=== PATIENT | male | born 1945 | race Hispanic/Latino ===

== ENCOUNTER 2017-02-09 06:59 | Inpatient (IN) | payer MEDICARE, OTHER ==
[2017-02-09] MEDS ORDERED: ceFAZolin 2 GM in NACL 0.9% 100 ML IV ONE (07:46)
[2017-02-09 08:01] LABS: Basophils % (Auto) 1.3 % (0.0-1.8); Eosinophils % (Auto) 8.8 % (0.0-4.3); Hematocrit 35.6 % (35.5-45.6); Hemoglobin 11.5 gm/dl (11.8-15.2); Mean Corpuscular HGB Conc 32 % (32-34); Mean Corpuscular Hemoglobin 29 pg (28-32); Mean Corpuscular Volume 89 fl (84-94); Platelet Count 179 K/mm3 (140-440); Red Blood Count 4.01 M/mm3 (3.65-5.03); Red Cell Distribution Width 15.3 % (13.2-15.2); White Blood Count 5.1 K/mm3 (4.5-11.0)
[2017-02-09 08:11] LABS: INR 1.2 (0.87-1.13)
[2017-02-09 08:12] LABS: Partial Thromboplastin Time 31.6 Sec. (24.2-36.6)
[2017-02-09 08:13] LABS: Anion Gap 14 mmol/L; Blood Urea Nitrogen 18 mg/dL (9-20); Calcium 9.8 mg/dL (8.4-10.2); Carbon Dioxide 23 mmol/L (22-30); Chloride 103.8 mmol/L (98-107); Glucose 96 mg/dL (75-100); Potassium 4.6 mmol/L (3.6-5.0); Sodium 136 mmol/L (137-145)
[2017-02-09] MEDS ORDERED: NACL 0.9% 1000 ML 1,000 ML IV ONE (08:56)
[2017-02-09] MEDS ORDERED: NACL 0.9% 1000 ML 1,000 ML ONE ×3 (08:58→18:47)
[2017-02-09] MEDS ORDERED: ANCEF/STERILE WATER 2 GM/20 ML 2 GM/20 ML SYRINGE IV NR (09:30)
[2017-02-09] MEDS ORDERED: HEPARIN/NS 5000 UNIT/500ML(CATH LAB) 1,000 ML IR ONE (09:31)
[2017-02-09] MEDS ORDERED: XYLOCAINE 2% INFILTRATI ONE (09:33)
[2017-02-09] MEDS ORDERED: ANCEF/STERILE WATER 2 GM/20 ML 2 GM/20 ML SYRINGE IV ONE (09:33)
[2017-02-09] MEDS ORDERED: WATER FOR INJ (PF) 10 ML ONE ×4 (09:33→12:09)
[2017-02-09] MEDS ORDERED: XYLOCAINE 1%/ EPI 1:100,000 INFILTRATI ONE (09:36)
[2017-02-09] MEDS ORDERED: CATHFLO ONE ×3 (09:49→12:08)
[2017-02-09] MEDS: SUBLIMAZE ONE ×8 (09:51→12:48)
[2017-02-09] MEDS: VERSED ONE ×8 (09:51→12:47)
[2017-02-09] MEDS: HEPARIN 10,000 UNITS/10 ML ONE ×5 (10:10→12:49)
[2017-02-09] MEDS ORDERED: HEPARIN/NS 5000 UNIT/500ML(CATH LAB) 500 ML IR ONE ×2 (10:33→10:39)
[2017-02-09] MEDS ORDERED: NACL 0.9% 50 ML ONE (10:40)
[2017-02-09] MEDS ORDERED: BENADRYL ONE (13:00)
[2017-02-09] MEDS ORDERED: ELIQUIS ONE (13:13)
--- NOTE | 2017-02-09 13:22 | Short Stay Summary ---
Short Stay Documentation Date of service: 02/09/17 - History H&P: obtained from office - Allergies and Medications Current Medications: Allergies aspirin Allergy (Verified 04/08/13 06:43) Rash Home Medications Medication Instructions Recorded Confirmed Last Taken Type Albuterol Sulfate [Ventolin HFA] 2 puff IH Q4H PRN 04/01/13 02/09/17 12/09/16 History 2 puff Simvastatin 20 mg PO QHS 04/01/13 02/09/17 02/09/17 06:00 History Tamsulosin [Flomax] 0.4 mg PO HS 04/01/13 02/09/17 02/08/17 History 0.4mg Valsartan [Diovan] 40 mg PO DAILY 04/01/13 02/09/17 02/09/17 06:00 History 40mg Active Medications Sodium Chloride (Nacl 0.9% 1000 Ml) 1,000 mls @ 42 mls/hr IV ONCE ONE Stop: 02/10/17 08:44 Last Admin: 02/09/17 09:16 Dose: 42 mls/hr - Physical exam General appearance: no acute distress Lungs: Normal air movement Extremities: pulses intact, normal temperature, normal color, abnormal (2-3+ RLE edema with mild to moderate tightness in the right calf) - Brief post op/procedure progress note Date of procedure: 02/09/17 Pre-op diagnosis: Ileofemoral DVT Post-op diagnosis: same Procedure: DVT thrombectomy, IVC filter, angioplasty, stenting Anesthesia: local Surgeon: ALTHEA PIERSON Estimated blood loss: other (150 mL) Condition: stable - Hospital course Hospital course: Tolerated procedure well. Vitals signs stable with orthostatic pressure. Walking without issue. Tolerating IV fluids without issue. Explained the importance of PO intake of food and liquids/water. - Disposition Condition at discharge: Stable Disposition: [id number] TO HOME OR SELFCARE - Discharge Diagnoses (1) Ileofemoral deep vein thrombosis Status: Acute Qualifiers: Laterality: L Short Stay Discharge Plan Activity: advance as tolerated Weight Bearing Status: Weight Bear as Tolerated Diet: regular Wound: keep clean and dry, other (take pressure dressing off tomorrow ; take medications as instructed) Additional Instructions: Remove Dressing from neck tomorrow .Call Dr Pierson for any temp greater than 100, redness . For any breathing problem , swelling or chest pain call 911. Prescriptions: Apixaban [Eliquis] 10 mg PO BID #14 tablet Apixaban [Eliquis] 5 mg PO BID #60 tablet HYDROcodone/APAP 5-325 [[place] 5/325] 1 - 2 each PO Q6HR PRN #60 tablet PRN Reason: Pain Ondansetron [Zofran Odt] 4 mg PO Q6HR PRN #20 tab.rapdis PRN Reason: Nausea And Vomiting
--- NOTE | 2017-02-09 13:38 | Operative Report ---
Operative Report Operative Report: EXAM: 1. Ultrasound-guided access of the right internal jugular vein 2. Selection of the inferior vena cava 3. Fluoroscopic-guided placement of an infrarenal Charity retrievable IVC filter 4. Selection of the right common iliac vein, external iliac vein, common femoral vein, and angiography of the right lower extremity 5. Selection of the right profundofemoral vein, right greater saphenous vein, right second duplicated superficial femoral vein and popliteal vein with angiography 6. Selection of the right first duplicated superficial femoral vein and popliteal vein with angiography 7. Infusion of 10 mg of TPA pulse breakthrough the right external iliac vein, common femoral vein, profunda femoral vein, first duplicated superficial femoral vein, duplicated popliteal vein and subsequent mechanical thrombectomy 8. Angioplasty of the right popliteal vein, and first duplicated superficial femoral vein with a 7 mm angioplasty balloon 9. Angioplasty of the right profunda femoral vein, common femoral vein, external iliac vein, and common iliac vein with a 12 mm angioplasty balloon 10. 6 Fr MPA aspiration thrombectomy of the right first duplicated superficial femoral vein and profunda femoral vein 11. Angioplasty of the second duplicated superficial femoral vein and popliteal vein with a 5 mm angioplasty balloon 12. Infusion of 4 mg of TPA in the left popliteal vein and superficial femoral vein 13. Repeat angioplasty of the right external iliac vein with a 12 mm angioplasty balloon 14. Stenting of the right external iliac vein with an 18 mm x 60 mm wall stent with postdilatation with a 12 mm angioplasty balloon and 14 mm angioplasty balloon DATE: 02/09/17 SAIL REPAIR PERSON: ALTHEA PIERSON MD INDICATION: Symptomatic right iliofemoral DVT involving the profundofemoral vein and common femoral vein MEDICATIONS: Please see nursing report for full details. DEVICES: Dillon, retrievable, IVC filter 5 mm x 120 mm angioplasty balloon 7 mm x 200 mm angioplasty balloon 12 mm x 60 mm angioplasty balloon 18 mm x 60 mm wall stent 14 mm angioplasty balloon 8 [place] AngioJet CONTRAST: Please see bed laborer report for full details. PROCEDURE: The risks, benefits, and alternatives were discussed with the patient and his ; written informed consent was obtained. The patient's right neck was prepped and draped in a sterile fashion. The right internal jugular vein was patent on ultrasound. Under direct ultrasound guidance, the right internal jugular vein was accessed with a 21- gauge mitral puncture needle. 0.018 inch wire was passed into the IVC. Needle was exchanged for transitional dilator. Wire was exchanged per 0.035 inch Amplatz wire. Transitional dilator was exchanged for a 5 [place] sheath. Pigtail catheters advanced over the wire and uses select the IVC near the ileocaval junction. Table was locked. Digital subtraction angiography was performed demonstrating a patent IVC. Renal inflow was visualized. The IVC was large enough to accommodate an IVC filter. The proximal most common iliac veins were patent. Pigtail catheter was removed over 0.035 inch Amplatz wire. Sheath was exchanged for an IVC filter deployment sheath and introducer. Introducer was removed. IVC filter deployment device was advanced to the sheath. It was then deployed below the renal veins under direct fluoroscopic guidance. Deployment device was removed and angiography was performed demonstrating patency of the IVC and proper position of the Dillon retrievable IVC filter. Amplatz wire was passed through the sheath and the sheath was exchanged for a 9 [place]ese short sheath. 6 [place]ese 90 cm Girard destination was advanced through the 9 [place] short sheath and used with a Glidewire advantage and an angled catheter to select the right common femoral vein. I then selected the profundafemoral vein. The right common iliac vein and the right external iliac vein were also selected. Digital subtraction angiography was performed demonstrating thrombus in the right profundafemoral vein, common femoral vein, lower external iliac vein, and a severe focal narrowing in the right lower external iliac vein. The right common iliac vein had only mild narrowing associated with it. I attempted to select the superficial femoral vein, but selected the right greater saphenous vein. Digital subtraction angiography was performed throughout its length demonstrating that it was patent. There was collateralization into the superficial femoral vein. Using roadmapping imaging, I then selected the superficial femoral vein. I then selected the popliteal vein. Digital subtraction angiography demonstrated that the superficial femoral vein and the popliteal vein were duplicated and there was a small amount of thrombus within the junction between the popliteal vein and the superficial femoral vein, but the rest of the superficial femoral vein was patent. The popliteal vein had a moderate amount of thrombus within the upper portion of that. I will subsequently refer to the superficial femoral vein and popliteal vein that I just selected that were not completely full of thrombus as the second duplicated system as it was smaller than the other femoral popliteal venous system. Using roadmapping imaging, I then selected the first duplicated superficial femoral vein and popliteal vein. Digital subtraction angiography demonstrated thrombus throughout the popliteal vein and superficial femoral vein of the first duplicated system which was larger than the second. 8 [place] AngioJet was advanced over the wire and used to pulse spray 10 mg of TPA in the right external iliac vein, common femoral vein, profunda femoral vein , first duplicated superficial femoral vein and first duplicated popliteal vein. 25 min dwell time was allowed. Afterwards, mechanical thrombectomy was performed of the right external iliac vein, common femoral vein, profunda femoral vein, first duplicated superficial femoral vein, and first duplicated popliteal vein. Digital subtraction angiography was then performed demonstrating resolution of most of the thrombus with probably 25% residual thrombus within the upper portion of the first duplicated popliteal vein, superficial femoral vein, profunda femoral vein, and common femoral vein. The mid and lower popliteal vein still had thrombus within them as the thrombectomy device could not reach this area. No residual thrombus in the iliac veins. 7 mm angioplasty balloon was advanced over the wire and use perform angioplasty from the first duplicated popliteal vein, first duplicated superficial femoral vein, and into the profundofemoral vein. 12 mm angioplasty balloon was then used to perform angioplasty from the profundofemoral vein into the common femoral vein, external iliac vein, and common iliac vein. Due to the length restrictions with the AngioJet catheter, I could not perform AngioJet thrombectomy into the mid and distal portion of the popliteal vein as the AngioJet was not long enough. Digital subtraction angiography was performed demonstrating thrombus within the mid and distal portions of the first duplicated popliteal vein with prompt flow throughout the rest of the first duplicated superficial femoral vein which only had mild residual narrowing. The superficial femoral vein previously had occlusive thrombus and multifocal moderate narrowing. There was some residual thrombus within the profundofemoral vein and superficial femoral vein which was then treated with aspiration thrombectomy with the 6 [place]ese MPA guide catheter. I then selected the second duplicated superficial femoral vein and popliteal vein and passed a 0.035 inch wire into this popliteal vein digital subtraction angiography in the popliteal vein demonstrated prompt flow, but residual thrombus at the lower portion of the second duplicated superficial femoral vein. 5 mm angioplasty balloon was use perform angioplasty of the lower second duplicated superficial femoral vein. Digital subtraction angiography then demonstrated improved flow into the profundofemoral vein and rest of the superficial femoral vein. I then injected 4 mg of TPA into the popliteal vein as far down as I could in order to attempt to pass TPA into the mid and lower popliteal vein. Pullback angiogram was then performed with the 6 [place]ese sheath which again demonstrated the severe narrowing within the external iliac vein. The rest of the common femoral vein and profundofemoral vein were with minimal thrombus. The right common iliac vein was widely patent. Due to leaking from the 9 [place]ese sheath, the 9 [place]ese sheath then had to be removed and upsized to 11 [place]ese sheath. 8 [place] sheath was then passed coaxially through the 11 [place]ese sheath into the right common femoral vein. Roadmapping imaging was performed. 12 mm angioplasty balloon was used to perform angioplasty of the right external iliac vein at the area of severe narrowing. Digital subtraction angiography was performed demonstrating severe narrowing with immediate recoil from angioplasty. 18 mm x 60 mm wall stent was then successfully deployed in the right external iliac vein. This was post dilated with a 12 mm angioplasty balloon, and then a 14 mm angioplasty balloon. Digital subtraction angiography was performed demonstrating no residual narrowing with excellent flow into the IVC. Digital subtraction angiography was then performed in the IVC demonstrating no thrombus in the IVC filter. All wires, catheters, and she stood with a removed. Pressure was held until hemostasis was achieved. Dermabond applied to the right neck. 10 mg Eliquis provided by mouth. Pressure dressing applied to the right neck. FINDINGS: Please see procedure note above. IMPRESSION: 1. Successful selection of the IVC with placement of an IVC filter 2. Successful selection of the right common iliac vein, external iliac vein, common femoral vein, profunda femoral vein, greater saphenous vein, and first and second duplicated superficial femoral vein and popliteal vein 3. Successful mechanical thrombectomy and TPA pulse infusion in the right external iliac vein, common femoral vein, profunda femoral vein, first duplicated superficial femoral vein and popliteal vein 4. Successful angioplasty of the right common iliac vein, common femoral vein, profunda femoral vein, first and second duplicated superficial femoral vein, and first popliteal vein 5. Successful stenting of the right external iliac vein with an 18 mm x 60 mm wall stent
[2017-02-09] MEDS ORDERED: PERCOCET 5/325 PO ONE (14:57)
[2017-02-09] MEDS ORDERED: PERCOCET 5/325 ONE (15:10)
[2017-02-09] MEDS ORDERED: ZOFRAN ONE ×2 (15:33→18:12)
[2017-02-09] MEDS ORDERED: ZOFRAN IV ONE ×2 (16:33→18:15)
[2017-02-09] MEDS ORDERED: NACL 0.9% 1000 ML 1,000 ML IV SCH ×2 (18:00→19:00)
[2017-02-09] MEDS ORDERED: TRANSDERM-SCOP TD ONE (18:35)
[2017-02-09] MEDS ORDERED: NORCO 5/325 PO PRN (19:00)
[2017-02-09] MEDS ORDERED: DULCOLAX PR PRN (19:00)
[2017-02-09] MEDS ORDERED: TYLENOL PO PRN (19:00)
[2017-02-09] MEDS ORDERED: MILK OF MAGNESIA PO PRN (19:00)
[2017-02-09] MEDS ORDERED: PROAIR IH PRN (19:06)
[2017-02-09] MEDS ORDERED: ATIVAN PO PRN (19:07)
[2017-02-09] MEDS ORDERED: APRESOLINE IV PRN ×2 (19:08→23:42)
[2017-02-09] MEDS ORDERED: PROVENTIL IH PRN (19:30)
[2017-02-09] MEDS ORDERED: FLOMAX PO SCH (22:00)
[2017-02-09] MEDS ORDERED: ZOCOR PO SCH (22:00)
[2017-02-09] MEDS: SENOKOT PO SCH (23:06)
[2017-02-09] MEDS: COLACE PO SCH (23:06)
[2017-02-09] MEDS: ZOFRAN IV PRN (23:07)
--- NOTE | 2017-02-09 23:43 | Consultation ---
History of Present Illness - Reason for Consult Consult date: 02/09/17 htn Requesting physician: ALTHEA PIERSON - History of Present Illness 71-year-old man with a history of hypertension, hyperlipidemia, status post thrombectomy, IVC filter is being consulted for management of his hypertension. Patient stated that he is on Diovan at home and his blood pressures usually controlled, he is compliant with medications. Currently have no complaints, pain is controlled Constitutional: no fever, no chills, no weight loss Ears, eyes, nose, mouth and throat: no nasal congestion, no nasal discharge, no sinus pressure, no vision change, no red eye. Neck: No neck pain or rigidity. Cardiovascular: chest pain, no orthopnea, no palpitations, no leg swelling Respiratory: No shortness of breath, no cough, no congestion, no wheezing Gastrointestinal: abdominal pain, hematochezia, no nausea, no vomiting Genitourinary : no dysuria, frequency , no hematuria Musculoskeletal: no joint swelling or muscle ache Integumentary: no rash, no pruritis Neurological: no parathesias, no numbness, no focal weakness Endocrine: no cold or heat intolerance, no polyuria or polydipsia Hematologic/Lymphatic: no easy bruising, no easy bleeding, no gland swelling Allergic/Immunologic: no urticaria, no angioedema. PAST MEDICAL HISTORY:hypertension, hyperlipidemia PAST SURGICAL HISTORY: IVC filter FAMILY HISTORY: Hypertension SOCIAL HISTORY: Denies alcohol, tobacco, drugs Medications and Allergies Allergies Allergy/AdvReac Type Severity Reaction Status Date / Time aspirin Allergy Rash Verified 04/08/13 06:43 Home Medications Medication Instructions Recorded Confirmed Last Taken Type Albuterol Sulfate [Ventolin HFA] 2 puff IH Q4H PRN 04/01/13 02/09/17 12/09/16 History 2 puff Simvastatin 20 mg PO QHS 04/01/13 02/09/17 02/09/17 06:00 History Tamsulosin [Flomax] 0.4 mg PO HS 04/01/13 02/09/17 02/08/17 History 0.4mg Valsartan [Diovan] 40 mg PO DAILY 04/01/13 02/09/17 02/09/17 06:00 History 40mg Apixaban [Eliquis] 5 mg PO BID #60 tablet 02/09/17 Unknown Rx Apixaban [Eliquis] 10 mg PO BID #14 tablet 02/09/17 Unknown Rx HYDROcodone/APAP 5-325 [[place] 1 - 2 each PO Q6HR PRN #60 tablet 02/09/17 Unknown Rx 5/325] Ondansetron [Zofran Odt] 4 mg PO Q6HR PRN #20 tab.rapdis 02/09/17 Unknown Rx Active Meds: Active Medications Acetaminophen (Tylenol) 650 mg PO Q4H PRN PRN Reason: Pain MILD(1-3)/Fever >100.5/[place] Acetaminophen/Hydrocodone Bitart ([place] 5/325) 2 each PO Q6H PRN PRN Reason: Pain, Moderate (4-6) Albuterol (Proventil) 2.5 mg IH Q4HRT PRN PRN Reason: Shortness Of Breath Apixaban (Eliquis) 10 mg PO Q12HR PINA PRN Reason: Protocol Stop: 02/16/17 10:01 Bisacodyl (Dulcolax) 10 mg MS QDAY PRN PRN Reason: Constipation unrelieved by MOM Docusate Sodium (Colace) 100 mg PO BID [facility] Last Admin: 02/09/17 23:06 Dose: 100 mg Hydralazine HCl (Apresoline) 10 mg IV Q4HR PRN PRN Reason: Hypertension Sodium Chloride (Nacl 0.9% 1000 Ml) 1,000 mls @ 150 mls/hr IV DIRECT PINA Lorazepam (Ativan) 1 mg PO QHS PRN PRN Reason: Sleep Magnesium Hydroxide (Milk Of Magnesia) 30 ml PO Q4H PRN PRN Reason: Constipation Ondansetron HCl (Zofran) 4 mg IV Q4H PRN PRN Reason: Nausea Last Admin: 02/09/17 23:07 Dose: 4 mg Senna (Senokot) 8.6 mg PO Q12HR [facility] Last Admin: 02/09/17 23:06 Dose: 8.6 mg Simvastatin (Zocor) 20 mg PO QHS [facility] Last Admin: 02/09/17 23:07 Dose: 20 mg Tamsulosin HCl (Flomax) 0.4 mg PO HS [facility] Last Admin: 02/09/17 23:06 Dose: 0.4 mg Valsartan (Diovan) 40 mg PO DAILY [facility] Exam - Physical Exam Narrative exam: Gen. appearance: Patient lying in bed, no apparent distress HEENT: Normocephalic, atraumatic, pupils equally round and reactive to light, extraocular movement intact, and no sclericterus,. No JVD or thyromegaly or nodule,neck supple, no carotid bruit ,mucous membranes moist, no exudate or erythema Heart: S1, S2, regular rate and rhythm Lungs: Clear to auscultation bilaterally, breathing comfortable Abdomen: Positive bowel sounds, nontender, nondistended, no organomegaly Extremity: No edema, cyanosis, clubbing Skin: No rash, nodules, warm, dry Neuro: Oriented 3, cranial nerves II-12 intact, speech is fluent, motor and sensory intact - Constitutional Vitals: Temp Pulse Resp BP Pulse Ox 98.5 F 50 L 20 144/85 94 02/09/17 23:05 02/09/17 23:05 02/09/17 23:05 02/09/17 23:05 02/09/17 23:05 Results - Labs CBC & Chem 7: 02/09/17 07:55 02/09/17 07:55 Labs: Abnormal lab results 02/09/17 02/09/17 02/09/17 Range/Units 07:55 07:55 07:55 Hgb 11.5 L (11.8-15.2) gm/dl RDW 15.3 H (13.2-15.2) % Cole % (Auto) 9.1 H (0.0-7.3) % Eos % (Auto) 8.8 H (0.0-4.3) % PT 15.1 H (12.2-14.9) Sec. INR 1.20 H (0.87-1.13) Sodium 136 L (137-145) mmol/L Assessment and Plan Hypertension Patient was restarted on his outpatient medication, IV hydralazine is also written as needed Agree with these medications, will follow
[2017-02-10] MEDS: ELIQUIS PO SCH ×2 (01:22→10:06)
[2017-02-10] MEDS: NACL 0.9% 1000 ML 1,000 ML IV SCH ×2 (01:28→07:55)
[2017-02-10 06:51] LABS: Basophils % (Auto) 0.5 % (0.0-1.8); Eosinophils % (Auto) 1.3 % (0.0-4.3); Hematocrit 31.2 % (35.5-45.6); Hemoglobin 10.4 gm/dl (11.8-15.2); Mean Corpuscular HGB Conc 33 % (32-34); Mean Corpuscular Hemoglobin 29 pg (28-32); Mean Corpuscular Volume 87 fl (84-94); Platelet Count 142 K/mm3 (140-440); Red Cell Distribution Width 15.3 % (13.2-15.2); White Blood Count 7.1 K/mm3 (4.5-11.0)
[2017-02-10 07:03] LABS: BUN/Creatinine Ratio 18.46; Calcium 9.7 mg/dL (8.4-10.2); Chloride 108.9 mmol/L (98-107); Potassium 5.3 mmol/L (3.6-5.0)
--- NOTE | 2017-02-10 08:34 | Admit Criteria Form ---
Admission Criteria Documentation: AMBULATORY SURGERY EXCEPTION CRITERIA Ambulatory Surgery Exception Criteria ( Place 'X' for any and all applicable criteria): Surgery or procedure performed on ambulatory basis may require inpatient stay for[A] ANY ONE of the following(1)(2)(3)(4)(5)(6)(7)(8)(9): [] I. A preoperative situation, condition, or finding that warrants inpatient stay as indicated by ANY ONE of the following: [] a) Inpatient care needed because of severity of a disease or condition rather than the surgery (eg, severe cardiac or respiratory disease, severe infection) (15) (16 ) (17) (18) [] b) Emergent procedure (eg, angioplasty for acute ischemia)(19) [] c) Complex surgical approach or situation as indicated by ANY ONE of the following(3): [] i) Open approach needed instead of usual endoscopic, transcatheter, or other less invasive procedure [] ii) Difficult approach because of previous operation [] iii) Airway monitoring required after open neck procedures(20)(21) [] iv) Large mass requiring unusually extensive dissection [] v) Additional complicating feature requiring inpatient care (eg, drain management)(22(23): [] d) Major surgery in a pt with high anesthetic risk as indicated by ANY ONE of the following (2)(3)(5)(7)(8): [] i) ASA risk class III or higher (severe systemic disease impairing function) [D] [] ii) Advanced age (eg, older than 85 years)(14)(24) [] iii) Symptomatic heart failure(25) [] iv) Symptomatic asthma or COPD(8)(21) [] v) Morbid obesity with hemodynamic or respiratory problems(20)( 21)(26)(27) [] vi) Obstructive sleep apnea(20)(21) [] vii) Former premature infants who are younger than 60 weeks [] viii) High risk for severe postoperative abnormalities (eg, severe postoperative hypocalcemia after parathyroidectomy for severe hyperparathyroidism)(27)( 28) [] ix) Unstable angina(25) [] e) Drug-related risk requiring inpatient stay as indicated by ANY ONE of the following(5)(10)(14)(32)(33) [] i) Procedure requires discontinuing drugs or other therapy (eg , antiarrhythmic medication, antiseizure medication), which necessitates inpatient observation or treatment.(18)(31) [] ii) Major surgery and high risk drug use as indicated by ANY ONE of the following: [] 1) Active abuse of cocaine or similar drug [] 2) Monoamine oxidase inhibitor use [] 3) Other drug identified as posing risk [] f) Inadequate outpatient care situation as indicated by ANY ONE of the following(5)(10)(14)(32)(33) [] i) Patient lives remote from medical facility and procedure has urgent complication potential, and temporary nearby residence cannot be arranged [] ii) Patient will have postprocedure incapacitation and inadequate assistance at home, or alternative level of care cannot be arranged. [] iii) Patient will have long general anesthesia or procedure side effect resolution time, and competent person to stay with patient on first postoperative night at home or alternative level of care cannot be arranged. []iv) Other inadequate outpatient situation that cannot be handled by other means [X] II. A perioperative event, condition, or finding that warrants inpatient stay as indicated by ANY ONE of the following (1)(2)(3): [] a) Inadequate physiologic recovery: cardiovascular, respiratory, or hemodynamic status not normal or near preoperative baseline(18) [] b) Hemodynamic instability [] c) Patient not alert with near normal or baseline mental status [] d) Temperature not normal or as expected and not appropriate for outpatient treatment of condition [] e) Ambulatory or appropriate activity level status not yet achieved post procedure [E](34)(35)(36) [] f) Operative site not appropriate (eg, unexpected or excessive drainage or bleeding) [X] g) Postoperative effects not resolved or adequately managed (eg, significant pain or vomiting not appropriate for outpatient or next level of care)(10)(12) [] h) Complicating features requiring inpatient care as indicated by ANY ONE of the following(37): [] i) Severe complications of procedure (eg, bowel injury, airway compromise, vascular injury,severe hemorrhage) [] ii) Extensive (eg, dissection far beyond usual scope of procedure ) or prolonged (eg, 120 minutes beyond usual) surgery needed requiring inpatient postoperative care [] iii) Conversion to an open or complex procedure that requires inpatient care (eg, open vs laparoscopic cholecystectomy, abdominal vs vaginal hysterectomy)(38) [] iv) Comorbid condition or test result identified during or post procedure that requires inpatient care (7) [] v) Malignant hyperthermia(30) [] vi) Other complicating feature requiring inpatient care(22)(23) Inpatient stay may be needed until ALL of the following are present (1)(2)(3)(4) (5)(6)(10)(14)(33)(40): []a) Physiologic recovery: cardiovascular, respiratory, and hemodynamic status normal or near preoperative baseline []b) Hemodynamic stability []c) Patient alert, with near normal or baseline mental status []d) Temperature appropriate: patient afebrile or temperature appropriate for outpt treatment of condition []e) Activity level appropriate: ambulatory or appropriate activity level post procedure []f) Operative site appropriate as indicated by ALL of the following: []i) Site dry or with expected drainage []ii) Any blood noted is as expected for procedure. []g) Postoperative effects resolved or managed as indicated by ALL of the following: []i) Pain management appropriate for outpatient (or next level of) care(10) []ii) Minimal nausea and vomiting: if present, successfully treated with oral medication(12) []iii) Headache, dizziness, or drowsiness (if present) are mild. []h) Voiding status acceptable as indicated by ANY ONE of the following: []i) Voiding spontaneously []ii) No voiding but instructions given for follow-up in 6 to 8 hours []iii) Urinary catheter in place, and instructions given for follow-up []i) Complicating features requiring inpatient care manageable at a lower level of care(37) []j) Comorbid conditions manageable at a lower level of care(37) The original [employer] content created by [employer] has been revised. The portions of the content which have been revised are identified through the use of italic text or in bold, and [email or web address] has neither reviewed nor approved the modified material. All other unmodified content is copyright [employer]. Please see references footnoted in the original [employer] edition 2016 Admission Criteria Met: Yes
[2017-02-10 09:51] VITALS: BP 111/59
[2017-02-10] MEDS ORDERED: DIOVAN PO SCH (10:00)
[2017-02-10] MEDS: ZOFRAN IV PRN (10:03)
[2017-02-10] MEDS: SENOKOT PO SCH (10:06)
[2017-02-10] MEDS: COLACE PO SCH (10:06)
[2017-02-10 10:20] LABS: BUN/Creatinine Ratio 16.42; Calcium 9.6 mg/dL (8.4-10.2); Potassium 5.1 mmol/L (3.6-5.0)
--- NOTE | 2017-02-10 11:43 | Progress Note ---
Assessment and Plan Pt doing well post-op. Am lab work showed elevated K. Discussed with Hospitalist. He will order a dose of Kayexalate. Will d/c home later today, pt will need to f/u with PCP next week. - Patient Problems (1) Ileofemoral deep vein thrombosis Current Visit: Yes Status: Acute Qualifiers: Laterality: L Subjective Date of service: 02/10/17 Interval history: Pt awake and alert without complaint this am. Objective - Constitutional Vitals: Vital Signs - 12hr 02/10/17 02/10/17 03:05 08:30 Temperature 98.4 F 97.8 F Pulse Rate 50 L 49 L Respiratory 20 20 Rate Blood Pressure 138/68 111/59 O2 Sat by Pulse 94 95 Oximetry General appearance: Present: no acute distress - EENT Eyes: EOM intact ENT: hearing intact - Neck Neck: supple, other (bruising at the base of the right neck following access. Incsision intact without erythema or drainage) - Respiratory Respiratory effort: normal Extremities: no ischemia - Neurologic Neurologic: no focal deficits - Psychiatric Psychiatric: appropriate mood/affect, intact judgment & insight, cooperative - Labs CBC & Chem 7: 02/10/17 05:58 02/10/17 09:52 Labs: Abnormal lab results 02/10/17 02/10/17 02/10/17 Range/Units 05:58 05:58 09:52 RBC 3.60 L (3.65-5.03) M/mm3 Hgb 10.4 L (11.8-15.2) gm/dl Hct 31.2 L (35.5-45.6) % RDW 15.3 H (13.2-15.2) % [place] % (Auto) 11.2 H (0.0-7.3) % Seg Neutrophils % 70.6 H (40.0-70.0) % Potassium 5.3 H 5.1 H (3.6-5.0) mmol/L Chloride 108.9 H 109.0 H (98-107) mmol/L Carbon Dioxide 20 L 20 L (22-30) mmol/L BUN 24 H 23 H (9-20) mg/dL Glucose 104 H 111 H (75-100) mg/dL
--- NOTE | 2017-02-10 12:03 | Short Stay Summary ---
Short Stay Documentation Date of service: 02/10/17 - History H&P: obtained from office - Allergies and Medications Current Medications: Allergies aspirin Allergy (Verified 04/08/13 06:43) Rash Home Medications Medication Instructions Recorded Confirmed Last Taken Type Albuterol Sulfate [Ventolin HFA] 2 puff IH Q4H PRN 04/01/13 02/09/17 12/09/16 History 2 puff Simvastatin 20 mg PO QHS 04/01/13 02/09/17 02/09/17 06:00 History Tamsulosin [Flomax] 0.4 mg PO HS 04/01/13 02/09/17 02/08/17 History 0.4mg Valsartan [Diovan] 40 mg PO DAILY 04/01/13 02/09/17 02/09/17 06:00 History 40mg Apixaban [Eliquis] 5 mg PO BID #60 tablet 02/09/17 Unknown Rx Apixaban [Eliquis] 10 mg PO BID #14 tablet 02/09/17 Unknown Rx HYDROcodone/APAP 5-325 [[place] 1 - 2 each PO Q6HR PRN #60 tablet 02/09/17 Unknown Rx 5/325] Ondansetron [Zofran Odt] 4 mg PO Q6HR PRN #20 tab.rapdis 02/09/17 Unknown Rx Active Medications Acetaminophen (Tylenol) 650 mg PO Q4H PRN PRN Reason: Pain MILD(1-3)/Fever >100.5/[place]D Acetaminophen/Hydrocodone Bitart ([place] 5/325) 2 each PO Q6H PRN PRN Reason: Pain, Moderate (4-6) Albuterol (Proventil) 2.5 mg IH Q4HRT PRN PRN Reason: Shortness Of Breath Apixaban (Eliquis) 10 mg PO Q12HR PINA PRN Reason: Protocol Stop: 02/16/17 10:01 Last Admin: 02/10/17 10:06 Dose: 10 mg Apixaban (Eliquis) 5 mg PO Q12HR PINA PRN Reason: Protocol Bisacodyl (Dulcolax) 10 mg WA QDAY PRN PRN Reason: Constipation unrelieved by MOM Docusate Sodium (Colace) 100 mg PO BID [facility] Last Admin: 02/10/17 10:06 Dose: 100 mg Hydralazine HCl (Apresoline) 5 mg IV Q6HR PRN PRN Reason: Hypertension Sodium Chloride (Nacl 0.9% 1000 Ml) 1,000 mls @ 150 mls/hr IV DIRECT [facility] Last Admin: 02/10/17 07:55 Dose: 150 mls/hr Lorazepam (Ativan) 1 mg PO QHS PRN PRN Reason: Sleep Magnesium Hydroxide (Milk Of Magnesia) 30 ml PO Q4H PRN PRN Reason: Constipation Ondansetron HCl (Zofran) 4 mg IV Q4H PRN PRN Reason: Nausea Last Admin: 02/10/17 10:03 Dose: 4 mg Senna (Senokot) 8.6 mg PO Q12HR [facility] Last Admin: 02/10/17 10:06 Dose: 8.6 mg Simvastatin (Zocor) 20 mg PO QHS [facility] Last Admin: 02/09/17 23:07 Dose: 20 mg Sodium Polystyrene Sulfonate (Kionex) 30 gm PO ONCE ONE Stop: 02/10/17 12:31 Tamsulosin HCl (Flomax) 0.4 mg PO HS [facility] Last Admin: 02/09/17 23:06 Dose: 0.4 mg Valsartan (Diovan) 40 mg PO DAILY [facility] Last Admin: 02/10/17 10:05 Dose: 40 mg - Physical exam Extremities: no ischemia - Brief post op/procedure progress note Procedure: Operative Report Operative Report: EXAM: 1. Ultrasound-guided access of the right internal jugular vein 2. Selection of the inferior vena cava 3. Fluoroscopic-guided placement of an infrarenal Charity retrievable IVC filter 4. Selection of the right common iliac vein, external iliac vein, common femoral vein, and angiography of the right lower extremity 5. Selection of the right profundofemoral vein, right greater saphenous vein, right second duplicated superficial femoral vein and popliteal vein with angiography 6. Selection of the right first duplicated superficial femoral vein and popliteal vein with angiography 7. Infusion of 10 mg of TPA pulse breakthrough the right external iliac vein, common femoral vein, profunda femoral vein, first duplicated superficial femoral vein, duplicated popliteal vein and subsequent mechanical thrombectomy 8. Angioplasty of the right popliteal vein, and first duplicated superficial femoral vein with a 7 mm angioplasty balloon 9. Angioplasty of the right profunda femoral vein, common femoral vein, external iliac vein, and common iliac vein with a 12 mm angioplasty balloon 10. 6 Fr MPA aspiration thrombectomy of the right first duplicated superficial femoral vein and profunda femoral vein 11. Angioplasty of the second duplicated superficial femoral vein and popliteal vein with a 5 mm angioplasty balloon 12. Infusion of 4 mg of TPA in the left popliteal vein and superficial femoral vein 13. Repeat angioplasty of the right external iliac vein with a 12 mm angioplasty balloon 14. Stenting of the right external iliac vein with an 18 mm x 60 mm wall stent with postdilatation with a 12 mm angioplasty balloon and 14 mm angioplasty balloon DATE: 02/09/17 TOOL TECHNICIAN: ALTHEA PIERSON MD INDICATION: Symptomatic right iliofemoral DVT involving the profundofemoral vein and common femoral vein MEDICATIONS: Please see nursing report for full details. DEVICES: Charity, retrievable, IVC filter 5 mm x 120 mm angioplasty balloon 7 mm x 200 mm angioplasty balloon 12 mm x 60 mm angioplasty balloon 18 mm x 60 mm wall stent 14 mm angioplasty balloon 8 [place] AngioJet CONTRAST: Please see foundry laborer coreroom report for full details. - Disposition Condition at discharge: Stable Disposition: [id number] TO HOME OR SELFCARE - Discharge Diagnoses (1) Ileofemoral deep vein thrombosis Status: Acute Qualifiers: Laterality: L (2) Hyperkalemia Status: Acute Short Stay Discharge Plan Activity: advance as tolerated Weight Bearing Status: Weight Bear as Tolerated Diet: regular Wound: keep clean and dry Additional Instructions: Call Dr Pierson for any temp greater than 100, redness . For any breathing problem , swelling or chest pain call 911. Follow up with: SRAVANI HAYWOOD JR, MD [Primary Care Provider] - 7 Days ALTHEA PIERSON MD [Staff Physician] - 14 Days Prescriptions: Apixaban [Eliquis] 10 mg PO BID #14 tablet Apixaban [Eliquis] 5 mg PO BID #60 tablet HYDROcodone/APAP 5-325 [[place] 5/325] 1 - 2 each PO Q6HR PRN #60 tablet PRN Reason: Pain Ondansetron [Zofran Odt] 4 mg PO Q6HR PRN #20 tab.rapdis PRN Reason: Nausea And Vomiting
[2017-02-10] MEDS ORDERED: KIONEX PO ONE (12:30)
--- NOTE | 2017-02-10 12:31 | Progress Note ---
Assessment and Plan Assessment and plan: Hypertension Elevated potassium Slight increase in creatinine - Patient is on VALSARTAN that may increase his potassium and also cause increase in creatinine, the increase in creatinine is mild. - D/C valsartan and start him on amlodipine. Please refer him to PCP for check up of BMP and restart of his ARB. - patient was given a dose of kayexalate. Thank you for the consult. History Interval history: Patient was seen and evaluated this morning, we have been consulted for the management of blood pressure. Hospitalist Physical - Physical exam Narrative exam: Not in cardiopulmonary distress. The patient appeared well nourished and normally developed. Vital signs as documented. Head exam is unremarkable. No scleral icterus . Neck is without jugular venous distension, thyromegaly, or carotid bruits. Lungs are clear to auscultation. Cardiac exam reveals regular rate and Rhythm. First and second heart sounds normal. No murmurs, rubs or gallops. Abdominal exam reveals normal bowel sounds, no masses, no organomegaly and no aortic enlargement. Extremities are nonedematous and both femoral and pedal pulses are normal. VACCINE CUSTOMER REPRESENTATIVE: Alert and oriented 3. No focal weakness. - Constitutional Vitals: Temp Pulse Resp BP Pulse Ox 97.8 F 49 L 20 111/59 95 02/10/17 08:30 02/10/17 08:30 02/10/17 08:30 02/10/17 08:30 02/10/17 08:30 General appearance: Present: no acute distress Results - Labs CBC & Chem 7: 02/10/17 05:58 02/10/17 09:52 Labs: Laboratory Last Values WBC 7.1 K/mm3 (4.5-11.0) 02/10/17 05:58 RBC 3.60 M/mm3 (3.65-5.03) L 02/10/17 05:58 Hgb 10.4 gm/dl (11.8-15.2) L 02/10/17 05:58 Hct 31.2 % (35.5-45.6) L 02/10/17 05:58 MCV 87 fl (84-94) 02/10/17 05:58 MCH 29 pg (28-32) 02/10/17 05:58 MCHC 33 % (32-34) 02/10/17 05:58 RDW 15.3 % (13.2-15.2) H 02/10/17 05:58 Plt Count 142 K/mm3 (140-440) 02/10/17 05:58 Lymph % (Auto) 16.4 % (13.4-35.0) 02/10/17 05:58 [place] % (Auto) 11.2 % (0.0-7.3) H 02/10/17 05:58 Eos % (Auto) 1.3 % (0.0-4.3) 02/10/17 05:58 Baso % (Auto) 0.5 % (0.0-1.8) 02/10/17 05:58 Lymph # 1.2 K/mm3 (1.2-5.4) 02/10/17 05:58 [place] # 0.8 K/mm3 (0.0-0.8) 02/10/17 05:58 Eos # 0.1 K/mm3 (0.0-0.4) 02/10/17 05:58 Baso # 0.0 K/mm3 (0.0-0.1) 02/10/17 05:58 Seg Neutrophils % 70.6 % (40.0-70.0) H 02/10/17 05:58 Seg Neutrophils # 5.0 K/mm3 (1.8-7.7) 02/10/17 05:58 PT 15.1 Sec. (12.2-14.9) H 02/09/17 07:55 INR 1.20 (0.87-1.13) H 02/09/17 07:55 APTT 31.6 Sec. (24.2-36.6) 02/09/17 07:55 Fibrinogen 341 mg/dl (211-480) 02/09/17 07:55 Sodium 142 mmol/L (137-145) 02/10/17 09:52 Potassium 5.1 mmol/L (3.6-5.0) H 02/10/17 09:52 Chloride 109.0 mmol/L (98-107) H 02/10/17 09:52 Carbon Dioxide 20 mmol/L (22-30) L 02/10/17 09:52 Anion Gap 18 mmol/L 02/10/17 09:52 BUN 23 mg/dL (9-20) H 02/10/17 09:52 Creatinine 1.4 mg/dL (0.8-1.5) 02/10/17 09:52 Estimated GFR 50 ml/min 02/10/17 09:52 BUN/Creatinine Ratio 16.42 % 02/10/17 09:52 Glucose 111 mg/dL (75-100) H 02/10/17 09:52 Calcium 9.6 mg/dL (8.4-10.2) 02/10/17 09:52 Blood Type O POSITIVE 02/09/17 07:55 Antibody Screen TNR 02/09/17 07:55 MILO Antibody Screen Negative 02/09/17 07:55
[2017-02-11] MEDS ORDERED: NORVASC PO SCH (10:00)
[2017-02-16] MEDS ORDERED: ELIQUIS PO SCH (22:00)
== END 2017-02-10 15:27 | disposition home or self-care (01) | DRG 272 ==
LOC: CATHLABREC 06:59 → 3A 19:00
PROVIDERS: ADMIT Radiology Diagnostic Radiology; ATTEND Radiology Diagnostic Radiology
PROC: 06CM3ZZ Extirpation of Matter from Right Femoral Vein, Percutaneous Approach (ICD-10-PCS; principal; 2017-02-09)
PROC: 067M3DZ Dilation of Right Femoral Vein with Intraluminal Device, Percutaneous Approach (ICD-10-PCS; 2017-02-09)
PROC: 06H03DZ Insertion of Intraluminal Device into Inferior Vena Cava, Percutaneous Approach (ICD-10-PCS; 2017-02-09)
PROC: 06CM3ZZ Extirpation of Matter from Right Femoral Vein, Percutaneous Approach (ICD-10-PCS; 2017-02-09)
PROC: 3E03317 Introduction of Other Thrombolytic into Peripheral Vein, Percutaneous Approach (ICD-10-PCS; 2017-02-09)
PROC: 067C3ZZ Dilation of Right Common Iliac Vein, Percutaneous Approach (ICD-10-PCS; 2017-02-09)
PROC: 067F3DZ Dilation of Right External Iliac Vein with Intraluminal Device, Percutaneous Approach (ICD-10-PCS; 2017-02-09)
PROC: 047C3ZZ Dilation of Right Common Iliac Artery, Percutaneous Approach (ICD-10-PCS; 2017-02-09)
PROC: 06CY3ZZ Extirpation of Matter from Lower Vein, Percutaneous Approach (ICD-10-PCS; 2017-02-09)
DX: I82.421 Acute embolism and thrombosis of right iliac vein (principal); Z88.6 Allergy status to analgesic agent; I10 Essential (primary) hypertension; E78.5 Hyperlipidemia, unspecified; Z82.49 Family history of ischemic heart disease and other diseases of the circulatory system; E87.5 Hyperkalemia
CPT/HCPCS: 36415; 37187; 37191; 37238; 37248; 37249; 75820; 80048; 85025; 85384; 85610; 85730; 86850; 86900; 86901; 96374; 96376; C1725; C1757; C1769; C1876; C1887; C1894; J0690; J1200; J1644; J2250; J2405; J2997; J3010; J7030; Q9967